=== PATIENT | male | born 1950 | race Caucasian/White ===

== ENCOUNTER 2017-05-01 12:00 | Inpatient (IN) | payer MEDICARE ==
[2017-05-14] MEDS ORDERED: ACETAMINOPHEN 1,000 MG/100 ML BTL IV ONE (06:00)
[2017-05-14] MEDS ORDERED: VANCOMYCIN HCL 1,000 MG in 0.9 % SODIUM CHLORIDE 250ML 250 ML IVPB ONE (06:00)
[2017-05-14] MEDS ORDERED: FAMOTIDINE 20MG TABLET PO ONE (06:00)
[2017-05-14] MEDS ORDERED: CELECOXIB 100 MG CAPSULE PO ONE (06:00)
[2017-05-14] MEDS ORDERED: METOCLOPRAMIDE 10 MG TABLET PO ONE (06:00)
[2017-05-14] MEDS ORDERED: MECLIZINE 25 MG TABLET PO ONE (06:00)
[2017-05-14] MEDS ORDERED: LABETALOL HCL 5MG/ML, 20ML VIAL IVPB ONE (10:51)
[2017-05-14] MEDS ORDERED: DESFLURANE 240 ML BTL INH ONE (10:51)
[2017-05-14] MEDS ORDERED: LIDOCAINE 2% MDV (20MG/ML) 20ML VIAL IV ONE (10:51)
[2017-05-14] MEDS ORDERED: FENTANYL PF 0.25MG/5ML AMPUL IV ONE (10:51)
[2017-05-14] MEDS ORDERED: ONDANSETRON HCL IV 4 MG/2 ML VIAL IVP ONE (10:51)
[2017-05-14] MEDS ORDERED: DEXAMETHASONE 4 MG/ML 1ML VIAL IVP ONE (10:51)
[2017-05-14] MEDS ORDERED: PROPOFOL 10 MG/ML VIAL IV ONE (10:51)
[2017-05-14] MEDS ORDERED: EPHEDRINE SULFATE 50 MG/ML ML IV ONE (10:51)
[2017-05-14] MEDS ORDERED: BUPIVACAINE 0.75% W/EPI MPF 30ML VIAL IVP ONE (14:00)
[2017-05-14] MEDS ORDERED: VANCOMYCIN HCL 1 GM VIAL IVPB ONE (14:00)
[2017-05-14] MEDS ORDERED: KETOROLAC 30 MG/ML VIAL IVP ONE (14:00)
[2017-05-14 14:55] LABS: ABO GROUP AB; ANTIBODY SCREEN NEGATIVE (NEGATIVE); RH TYPE POSITIVE
[2017-05-14] MEDS ORDERED: AL HYDROX/MAG HYDROX 30ML UD PO PRN (15:14)
[2017-05-14] MEDS ORDERED: MORPHINE SULFATE 5 MG/ML PFS IVP PRN ×4 (15:14)
[2017-05-14] MEDS ORDERED: DIPHENHYDRAMINE HCL 25 MG CAPSULE PO PRN (15:14)
[2017-05-14] MEDS ORDERED: PROMETHAZINE HCL 12.5 MG in 0.9 % SODIUM CHLORIDE 100ML 50 ML IVPB PRN (15:14)
[2017-05-14] MEDS ORDERED: HYDROCODONE/APAP 5/325MG TABLET PO PRN ×2 (15:14)
[2017-05-14] MEDS ORDERED: NALOXONE 0.4 MG/1 ML VIAL IVP PRN (15:14)
[2017-05-14] MEDS ORDERED: ACETAMINOPHEN 325 MG TAB PO PRN (15:14)
[2017-05-14] MEDS ORDERED: ACETAMINOPHEN W/ CODEINE 300MG/60MG TABLET PO PRN ×2 (15:14)
[2017-05-14] MEDS ORDERED: METOCLOPRAMIDE HCL 10 MG/2 ML VIAL IVP PRN (15:14)
[2017-05-14] MEDS ORDERED: TRAMADOL HCL 50 MG TABLET PO PRN ×2 (15:14)
[2017-05-14] MEDS ORDERED: HYDROCODONE/APAP 7.5/325MG TABLET PO PRN (15:14)
[2017-05-14] MEDS ORDERED: KETOROLAC 30 MG/ML VIAL IVP PRN ×2 (15:14)
[2017-05-14] MEDS ORDERED: HYDROMORPHONE HCL 2 MG/ML VIAL IM PRN (15:14)
[2017-05-14] MEDS ORDERED: ACETAMINOPHEN W/ CODEINE 300MG/30MG TABLET PO PRN ×2 (15:14)
[2017-05-14] MEDS ORDERED: HYDROMORPHONE HCL 1 MG/ML SYRINGE IM PRN (15:14)
[2017-05-14] MEDS ORDERED: BISACODYL 10 MG SUPP RC PRN (15:14)
[2017-05-14] MEDS ORDERED: ZOLPIDEM TARTRATE 5 MG TABLET PO PRN (15:14)
[2017-05-14] MEDS ORDERED: ONDANSETRON HCL IV 4 MG/2 ML VIAL IVP PRN (15:14)
[2017-05-14] MEDS ORDERED: MAGNESIUM HYDROXIDE 30 ML UDC PO PRN (15:14)
[2017-05-14] MEDS ORDERED: DEXTROSE 5 % AND 0.9 % NACL 1,000 ML IV PRN (19:00)
[2017-05-14] MEDS ORDERED: PATIENT OWN MED: FLUTICASONE NASAL SPRAY INH PRN (19:53)
[2017-05-14] MEDS: BUPROPION 200 MG PO SCH (23:49)
[2017-05-14] MEDS: PATIENT OWN MED: FOLIC ACID 1 MG PO SCH (23:51)
[2017-05-14] MEDS: PATIENT OWN MED: METOPROLOL TARTRATE 25 MG PO SCH (23:52)
[2017-05-14] MEDS: PATIENT OWN MED: DIPHENHYDRAMINE 25 MG PO SCH (23:52)
[2017-05-14] MEDS: PATIENT OWN MED: RANITIDINE 150 MG PO SCH (23:52)
[2017-05-14] MEDS: QUETIAPINE 200 MG PO SCH (23:53)
[2017-05-14] MEDS: PATIENT OWN MED: SIMVASTATIN 20 MG PO SCH (23:53)
[2017-05-14] MEDS: DOCUSATE SODIUM 100 MG CAPSULE PO SCH (23:58)
[2017-05-14] MEDS: FERROUS SULFATE 325 MG TAB PO SCH (23:59)
[2017-05-15] MEDS: MIRTAZAPINE 15 MG TABLET PO SCH ×2 (00:01→23:22)
[2017-05-15] MEDS: VANCOMYCIN HCL 1,000 MG in DEXTROSE 5 % IN WATER 250 ML IVPB SCH ×4 (02:46→13:56)
[2017-05-15 06:56] LABS: HEMATOCRIT 27.3 % (42.0-52.0); HEMOGLOBIN 8.8 gm/dl (14.0-18.0)
--- NOTE | 2017-05-15 07:21 | RADIOLOGY REPORT ---
EXAM: LEFT HIP HISTORY: POSTOP LEFT HIP ARTHROPLASTY. TECHNIQUE: A single view of the left hp was obtained. Comparison: None. FINDINGS: There is a total left hip arthroplasty present. No fracture, dislocation or complicating process identified. IMPRESSION: TOTAL LEFT HIP ARTHROPLASTY IN PLACE. JOB NUMBER: [id number] MTDD
[2017-05-15] MEDS: PATIENT OWN MED: RANITIDINE 150 MG PO SCH ×2 (08:05→17:47)
[2017-05-15] MEDS: METHYLPHENIDATE 10 MG PO SCH ×3 (08:05→17:47)
[2017-05-15] MEDS: BUPROPION 200 MG PO SCH ×2 (08:06→17:46)
[2017-05-15] MEDS: PATIENT OWN MED: DIPHENHYDRAMINE 25 MG PO SCH ×4 (08:06→23:23)
[2017-05-15] MEDS: RIVAROXABAN 10 MG TABLET PO SCH (10:12)
[2017-05-15] MEDS: DOCUSATE SODIUM 100 MG CAPSULE PO SCH ×2 (10:13→23:22)
[2017-05-15] MEDS: FERROUS SULFATE 325 MG TAB PO SCH ×2 (10:13→23:22)
[2017-05-15] MEDS: CELECOXIB 100 MG CAPSULE PO SCH (10:13)
[2017-05-15] MEDS: HYDROCODONE/APAP 7.5/325MG TABLET PO PRN ×2 (10:41→17:15)
--- NOTE | 2017-05-15 12:35 | Rehab Evaluation ---
Patient Information - Patient Information Diagnosis: L Hip Arthrosis Ordered Treatment: PT Evaluate and Treat Status: Initial Evaluation Surgery: Yes (L RACHEL) Date of Surgery: 05/14/17 History: Detail (Pt. reports slowly progressive onset of hip pain secondary to arthritis. Pt. has had seven surgical procedures related to his low back which left his LEs deconditioned. Pt. reports he is unable to feel his toes on the left side secondary to history of spinal surgeries. Pt. has underwent multiple cervical fusions.) Past Med/Marlon Hx Detail: Detail (Pt. reports history of lumbar laminectomy, cervical fusion, and total hip replacement.) Past Medical/Surgical Hx: PAST MEDICAL/SURGICAL HISTORY Past Surgical History hernia; plastic sx-face; left shoulder TSA; spinal fusion x7; tonsils PMH - Respiratory Hx Respiratory Disorders Yes Hx Sleep Apnea Yes Hx of CPAP Yes Comment: smoker PMH - Cardiovascular Hx Cardiovascular Disorders Yes Hx Hypertension Yes Hx Vascular Disease Yes: VERICOSE VEINS Comment: hi chol PMH - Neuro Hx Neurological Disorders No Comment: OCC SINUS HEADACHE PMH - GI Hx Gastrointestinal Disorders Yes Hx Gastroesophageal Reflux Yes Hx Ulcer Yes Comment: OCC BLOOD IN STOOL AFTER DIARRHEA PMH - Hx Genitourinary Disorders No PMH - Endocrine Hx Endocrine Disorders No Hx Diabetes No Hx Thyroid Disease No PMH - Musculoskeletal Hx Musculoskeletal Disorders Yes Hx Arthritis Yes: OSTEO, LEFT HIP PAIN Hx Gout Yes Comment: RHEUMATOID PMH - Psych Hx Psychiatric Problems Yes Hx Anxiety Yes Hx Behavior Problems Yes Hx Depression Yes Comment: on meds PMH - Hematology/Oncology Hx Hematology/Oncology No Disorders Premorbid Status: Detail (Pt. reports slowly progressive worsening of sx.) Social History: Detail (Pt. lives alone in a single story home. Pt. is a retired teacher. Pt. has 1 step leading to a platform and another step entering the home from the garage. Pt. has a standard tub and shower chair. The pt. was given a standard walker.) Precautions: Byron, Fall - Time With Patient Total Time Spent With Patient (Min): 60 Treatment Procedures: Detail (Physical therapy evaluation completed. Pt. was left supine with call light available, B IPC, nursing was notified of pt.'s status and his dressing was changed due to being saturated.) Subjective Information - Subjective Information Per Patient (Pt. reports 0/10 resting hip pain and 8/10 pain at worst. With eyes closed. pt. was unable to accurately verbalize location of PT's finger on the first and last ray of his left foot.) Objective Data - Pain Pain Present: Yes Pain Scale Used: Numeric (1 - 10) - Mental Status Patient Orientation: Oriented x3 - Visual Perception Appears within normal limits for therapeutic activities - ROM Other (Right hip within functional limits actively. L hip not tested for flexion , IR, and adduction due to hip precautions. Active knee flexion on the left was 50% actively, full passive.) - Strength/Tone Not within normal limits (L knee extension and flexion 3+/5. L ankle dorsiflexion 3+/5. Pt. unable to sit upright with good midline positioning due to pain at left hip. Pt. required assistance with performing SLR LLE and could not I lift his operative LE when performing sit<->supine transfers.) - Coordination Appears within normal limits for therapeutic activities - Bed Mobility Needs Assist (Pt. required assistance with lifting his operative lower extremity to and from the bed. Pt. required use of hand rail to transition from supine to seated positioning. Pt. required verbal cues to use his opposite LE with bed mobility.) - Transfers Needs Assist (Pt. required moderate assistance x1 with sit to stand and stand to sit transfer.) - Balance Balance Sitting: Fair (Pt. demonstrated poor safety awareness with seated balance and LE positioning. Pt. received constant verbal cues to avoid breaking hip precautions. The pt. favored weight shift to his right side to avoid increased pain with midline positioning at the left hip. The pt. broke his his precautions when leaning to his right side while seated, placing his LLE into hip IR and adduction.) Balance Standing: Fair - Sensation Deficit (Pt. was not able to feel his toes at the LLE. Pt. had diminished proprioceptive and kinesthetic awareness.) - Gait Detail (Pt. ambulated 52 feet with CGA, exhibiting B elbows locked into extension.) - ADL's/IADL's Detail (Not assessed.) - Special Tests No Therapy Assessment - Therapy Assessment Detail (Pt. exhibits poor safety awareness and required verbal cues to maintain hip precautions, LE weakness, dependence with bed mobility and transfers. Given patients LE strength, poor safety awareness, history of deconditioning and spinal procedures, not having social support in the home environment, and steps leading into the home and basement, the pt. is appropriate for transition to [facility] following inpatient PT for further gait training, stair training, and review of hip precautions with bed mobility and transfers to ensure the pt. does not break his precautions and remain safe while ambulating.) Patient Education - Patient Education Teaching Topic: Equipment Use, Exercise/Activity, Precautions, Risk Factors Response: Unable to Return Demo (Pt. unable to transfer himself to and from supine position without breaking his hip precations.) Teaching Method: Discussion, Demonstration Teaching Recipient: Patient Barriers To Learning: Other Problem List - Problem List Physical Therapy Problem List: Detail (1) LE weakness 2) Dependence with bed mobility 3) Poor safety awareness 4) ROM restriction L hip 5) Poor seated balance/midline positioning) Goals - Goals Physical Therapy Goals: 1) Pt. will verbalize understanding of his hip precautions. 2) Pt. will be independent with his home exercise program. 3) Pt. will demonstrate good understanding of his hip precautions with all transfers. 4) Pt. will exhibit good midline positioning while seated for safe balance and to avoid breaking his hip precautions. Prognosis - Prognosis Good (Pt. is expected to meet all inpatient goals and transition to [facility].) Plan - Plan Physical Therapy Plan: The pt. will be seen for inpatient PT 1-2x per day (M-F) until goals met and is appropriate for transition to [facility].
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
--- NOTE | 2017-05-15 15:36 | Physical Therapy Tx Note ---
Physical Therapy Tx Note - Treatment Note Tolerated: Good (Patient doing a little better this afternoon. Has been able to be up with nursing and bandages holding now. More conscious of hip precautions. Able to walk with standard walker with good technique and tolerance. Reviewed exercises and hip precautions with good understanding.) Physical Therapy Tx Note: Detail (Patient seen bedside, supine to sit with use trapeze and needed assist to slide left LE and pivot on buttocks to edge of bed. Flattened out bed and able to move sit to stand with standard walker and CGA, assist pushing IV pole and ambulated into [place] about 100 feet then back to room. Into bed with very little assist with left LE. Reviewed hip exercises with good technique and reviewed hip precautions again.) Physical Therapy Problem List: Detail (1) LE weakness 2) Dependence with bed mobility 3) Poor safety awareness 4) ROM restriction L hip 5) Poor seated balance/midline positioning) Physical Therapy Goals: 1) Pt. will verbalize understanding of his hip precautions. 2) Pt. will be independent with his home exercise program. 3) Pt. will demonstrate good understanding of his hip precautions with all transfers. 4) Pt. will exhibit good midline positioning while seated for safe balance and to avoid breaking his hip precautions. Prognosis: Good (Patient doing much better this afternoon but still needs some assist getting into and out of bed so does not violate hip precautions. Patient supposed to go to short term rehab facility over weekend to continue progress toward going home safely. Has not done any stairs here in [facility].) Physical Therapy Plan: The pt. will be seen for inpatient PT 1-2x per day (M-F) until goals met and is appropriate for transition to [facility].
[2017-05-15] MEDS: PATIENT OWN MED: FOLIC ACID 1 MG PO SCH (17:47)
[2017-05-15] MEDS: MELATONIN 5 MG TABLET PO SCH ×2 (23:22)
[2017-05-15] MEDS: PATIENT OWN MED: METOPROLOL TARTRATE 25 MG PO SCH (23:23)
[2017-05-15] MEDS: QUETIAPINE 200 MG PO SCH (23:24)
[2017-05-15] MEDS: PATIENT OWN MED: SIMVASTATIN 20 MG PO SCH (23:24)
[2017-05-16 06:54] LABS: HEMATOCRIT 26.2 % (42.0-52.0); HEMOGLOBIN 8.3 gm/dl (14.0-18.0)
[2017-05-16] MEDS: BUPROPION 200 MG PO SCH (08:41)
[2017-05-16] MEDS: PATIENT OWN MED: DIPHENHYDRAMINE 25 MG PO SCH ×2 (08:42→15:07)
[2017-05-16] MEDS: PATIENT OWN MED: RANITIDINE 150 MG PO SCH (08:43)
[2017-05-16] MEDS: METHYLPHENIDATE 10 MG PO SCH ×2 (08:46→15:06)
[2017-05-16] MEDS: RIVAROXABAN 10 MG TABLET PO SCH (09:10)
[2017-05-16] MEDS: CELECOXIB 100 MG CAPSULE PO SCH (09:10)
[2017-05-16] MEDS: DOCUSATE SODIUM 100 MG CAPSULE PO SCH ×2 (09:10→15:11)
[2017-05-16] MEDS: FERROUS SULFATE 325 MG TAB PO SCH (09:10)
[2017-05-16] MEDS ORDERED: OXYCODONE/APAP 10MG-325MG TABLET PO PRN (14:12)
--- NOTE | 2017-05-16 19:32 | RADIOLOGY REPORT ---
EXAM: CHEST AP or PA ONLY HISTORY: REHAB PLACEMENT. TECHNIQUE: AP chest. COMPARISON: Chest x-ray 11/03/12. FINDINGS: The lungs are clear. Cardiac silhouette and diaphragm are unremarkable. Partially visualized fusion rods overlying the lower thoracic spine. Left shoulder arthroplasty. A fixation plate overlies the cervical spine. IMPRESSION: NO ACUTE INTRATHORACIC PROCESS. JOB NUMBER: [id number] MTDD
--- NOTE | 2017-05-18 09:20 | Discharge Summary ---
DATE: 05/16/2017 HISTORY: This is a 67-year-old male with end-stage left hip arthrosis. Failed nonoperative treatment. Scheduled for left total hip arthroplasty. HOSPITAL COURSE: The patient was admitted on the date of procedure, 05/14/2017. Tolerated well. Postop he was afebrile, vital signs stable. Neurovascularly intact. His dressing was clean, dry, and intact. He had Xarelto for DVT prophylaxis. Pain medication. Antibiotics. Sent to the floor for total hip arthroplasty protocol. He did well with therapy and eventually discharged postop day 1 to rehab at [facility]. Continue his pre-admission medication as well as pain pill, iron, and Xarelto. He will follow up in 2 weeks. JING
--- NOTE | 2017-05-18 09:30 | Operative Note ---
DATE OF SURGERY: 05/14/2017 PREOPERATIVE DIAGNOSIS: End-stage left hip arthrosis. POSTOPERATIVE DIAGNOSIS: End-stage left hip arthrosis. OPERATION: Left total hip arthroplasty, cemented. Surgeon: Arpan Dela Cruz MD Anesthesia: Spinal, RALPH Wilder COMPLICATIONS: None. Estimated Blood Loss: 200 mL. OPERATIVE FINDINGS: Severe [id number] hip arthrosis, massive femoral head. COMPONENTS PLACED: A 2 g vancomycin cement Ku and Nephew cemented Synergy stem collar size 14 with 13 centralizer high offset with a 3-hole 60 mm acetabular shell component Reflection with 1 acetabular screw, 2 screw caps, centrally-threaded screw cap, and a 35-degree highly cross-linked polyethylene liner. Indications: This is a 67-year-old male who has had pain and dysfunction for several years. Failed nonoperative treatment. Scheduled for the procedure above. I explained all risks and benefits in detail for the diagnosis and procedure including but not limited to infection, nerve injury, vessel injury, persistent pain, stiffness, numbness, tingling in hip, limb length discrepancy, need for resection arthroplasty if components are infected or loosen, blood clot, and need for further procedures. All of his questions were answered. The course was outlined. Agreed to proceed. PROCEDURE: The patient brought to the OR and placed in the right lateral decubitus position. The left hip and lower extremity prepped and draped in sterile fashion. Prepped using Chloraprep and draped. A general timeout was performed. Next, a posterior incision was marked with incision-marking template. It was infiltrated with 0.5% Marcaine with epinephrine. Skin and subcutaneous dissected down. Gluteal fascia split longitudinally. The subgluteal plane was bluntly dissected. Brought in self-retainer. Identified the short external rotators, tagged with #2 Vicryl. Took them off and released the capsule. Next, dislocated the femoral head. It was a massive femoral head measuring 52 mm resected, about 1.5 cm above the lesser trochanter. Next, inserted the box osteotome and then started reaming by hand first working in 1 mm increments up to size 14. We stopped there. We used a 12 broach, calcar plane, then a 13 broach, then a 14 broach. It fit nicely. Attention to the acetabulum. Released the capsule anteriorly. Placed the retractor inferiorly and retractor anteriorly to retract the proximal femur. Removed the labrum and started reaming with a 48 mm reamer on this large acetabulum in 45 degrees inclination 20 degrees anteversion until we reamed basically up to a size 59. We then trialed a size 60 shell, again same orientation, and it fit nicely. Next, we changed gloves. Irrigated copiously acetabulum and then impacted down the real 3-hole Reflection acetabular shell component using a helicopter guide again in 45 degrees inclination and 20 degrees anteversion. It was flush to the medial wall. Next, we drilled a posterior superior central quadrant screw hole, inserted a 40 mm screw, had excellent purchase. We placed a trial liner, did a trial reduction. Best combination range of motion, stability, and leg lengths was with a high offset stem and a 32 plus 0 mm femoral head. Abductors were somewhat loose; however, his limb lengths were equal to slight longer on the left. I did not want to make his limb length any shorter to sacrifice stability. We implanted using 35-degree mann liner anyway, so flexion to 90 and rotation to 80 before the hip dislocated and he had stability with extension and external rotation and there were the sizers that were used. Next, we removed all trial components, changed gloves, copiously irrigated. Inserted the centrally threaded screw cap and 2 other screw caps and then impacted down the real 35-degree highly cross-linked polyethylene liner with the mann in the posterior supine quadrant. Next, irrigated the femoral canal copiously and placed the cement restricted distally and injected the cement and using sterile technique removed with suction catheter. Then inserted the real high-offset stem down in 15 degrees of anteversion until the collar was flush with our calcar cut and held it there until the cement hardened and removed excess cement. Next, we cleaned and dried the trunnion, packed down the real femoral head component, and reduced it. Found the range of motion to be the same. Next, we irrigated copiously. We injected deep capsule external rotators around the periosteum and then gluteal area with several sticks of 0.5% Marcaine with epinephrine, 2 g of tranexamic acid and Exparel mixture. Next, we then repaired the short external rotators to the abductors with #2 Vicryl stitch. Irrigated again, closed the gluteal fascia with running #2 Quill suture. Closed the skin deep with 2-0 Vicryl and zip line was used to approximate the skin edge. Sterile dressing applied. Postoperative x-ray revealed good fit and orientation of components. Patient tolerated the procedure well. No intraoperative complications. All sponge and needle counts correct. Recovery stable. To be discharged to the floor likely discharge in 1-2 days possibly to rehab or swing bed here. PAMELAD
== END 2017-05-16 16:34 | DRG 470 ==
LOC: MEDSURG 05-14 13:23
PROVIDERS: ADMIT Orthopaedic Surgery; ATTEND Orthopaedic Surgery
PROC: 0SRB069 Replacement of Left Hip Joint with Oxidized Zirconium on Polyethylene Synthetic Substitute, Cemented, Open Approach (ICD-10-PCS; principal; 2017-05-14 15:00)
DX: M16.12 Unilateral primary osteoarthritis, left hip (principal); E78.00 Pure hypercholesterolemia, unspecified; I10 Essential (primary) hypertension; M06.9 Rheumatoid arthritis, unspecified; Z72.0 Tobacco use
CPT/HCPCS: 71010; 85014; 85018; 86850; 86900; 86901; 97110; 97116; 97166; J1885; J2405; J3490; J7060